=== PATIENT | female | born 1965 | race Caucasian/White ===

== ENCOUNTER 2017-07-24 16:24 | Inpatient (IN) | payer OTHER ==
[~2017-07-24] VITALS: Ht 177.8 cm; Wt 85.5 kg
[2017-07-24 16:29] VITALS: BP 131/86; PULSE 95; RESP 16; O2SAT 97
--- NOTE | 2017-07-24 16:53 | ED.REPORT ---
HPI-Abd Pain F 40 and Over Date of Service Jul 24, 2017 ED Provider: Sundar Trinidad DO Pt is a generally healthy 51 y/o female w/ a hx of nephrolithiasis presenting to the ED with her c/o RUQ abdominal pain onset 6 days ago. She c/o associated N/V/D, SOB, pleuritic abdominal pain. She saw a dark red blob in her emesis and is concerned that it may be blood. Pt denies fever, bloody stool, melena, dysuria, urinary frequency. She still has her gallbladder. The patient was seen for this yesterday at an [place] [facility] at which time labs and urine dip were performed. Labs from that visit remarkable for WBC of 16.6, HGB of 14.7 , platelets of 292, creatinine of 0.67, LFTs normal, total bilirubin of 0.7, and 2+ blood on urine dip. She was given a referral to GI for an appointment in 1 week at the earliest. She didn't feel any better and therefore came to the ED today. Her medications are only aspirin and vitamins. This pain is not similar to previous kidney stone related pain. Nursing Notes Stated Complaint: STOMACH PAIN, POSS BLOOD IN VOMIT Chief Complaint: Female Abdominal Pain Nursing Notes Reviewed: Yes Allergies: Coded Allergies: tree nut (Verified Allergy, Severe, Anaphylaxis, 07/24/17) shellfish derived (Verified Allergy, Mild, GI ISSUES, 07/24/17) TESTED SENSITIVITY TO SHELLFISH No Known Allergies (Unverified Allergy, Unknown, 07/24/17) General Time Seen by MD: 16:49 Chief Complaint Abdominal pain Hx Obtained From: Patient Arrived By: Walk-in Sudden in Onset?: No Onset Occurred: 6 days ago Symptom Duration: Since onset Progression since Onset: Constant Location: : Epigastric Quality: Painful Severity: Current: Moderate Severity: Maximum: Moderate Recent Healthcare: Recent doctor visit Past Medical History Past Medical History Hx kidney stones Past Surgical History Hysterectomy Smoking History Never Smoker Social History Alcohol Use: Denies alcohol use Drug Use: Denies drug use Other Social History: Ambulatory Status Independent Review of Systems Constitutional: Denies: Chills, Fever Respiratory: Reports: Shortness of breath, Denies: Non-productive cough GI: Reports: Abdominal pain, Diarrhea, Nausea, Vomiting, Denies: Bloody/tarry stool, Melena Female: Denies: Dysuria, Urinary frequency Complete sys rev & neg: except as marked. Physical Exam Vital Signs Vital Signs (First) Date Time Temp Pulse Resp B/P Pulse Ox O2 Delivery O2 Flow Rate FiO2 07/24/17 16:29 36.8 95 16 131/86 97 Room Air Initial VS: Reviewed, Vital signs normal Head / Eyes: Atraumatic, Normocephalic ENT: Mucous membranes moist, Conjunctiva normal Neck: Supple, Full range of motion Extremities: Vascular intact, Neuro intact, No swelling Skin: Warm, Dry, No cyanosis Neurologic: Alert, Oriented, Nonfocal Psychiatric: Mood/affect normal, Behavior normal, Normal thought content General/Constitutional: Awake, Alert, No acute distress, Cooperative, Not toxic appearing Respiratory / Chest: Breath sounds NL, Breath sounds = bilat, No respiratory distress, No rales, No rhonchi, No wheezing, No stridor Cardiovascular: Heart rate NL, Regular rhythm, Heart sounds NL, No murmurs Abdomen: Atraumatic, Soft, No distention, No palpable mass Tenderness/Guarding/Rebound: Positive: Guarding involuntary, Hardin's sign positive, Tender RUQ... (mod-severe), Tender epigastric (moderate) Back: Full range of motion, Painless range of motion Interpretation & Diagnostics Lab Results Interpretation Result Diagram: 07/24/17 1741 Test 07/24/17 17:10 07/24/17 17:41 Hold Urine Received (Received) White Blood Count 13.6th/mm3 (3.8-10.1) Red Blood Count 4.78mil/mm3 (3.90-5.20) Hemoglobin 14.2g/dL (12.0-15.6) Hematocrit 40.8% (35.0-46.0) Mean Corpuscular Volume 85.4fL (81-100) Mean Corpuscular Hemoglobin 29.7pg (27.0-35.0) Mean Corpuscular Hemoglobin Concent 34.8% (32.0-37.0) Red Cell Distribution Width 13.6% (12.3-15.4) Platelet Count 289bil/L (150-400) Neutrophils (%) (Auto) 74.9% (40-74) Lymphocytes (%) (Auto) 16.6% (14-46) Monocytes (%) (Auto) 6.6% (4-12) Eosinophils (%) (Auto) 1.5% (0-5) Basophils (%) (Auto) 0.3% (0-3) Re-Eval/Medical Decision Source of Hx: Old records Counseled Regarding: Diagnosis, Lab results Discharge & Departure Primary Impression: Epigastric pain Discharge Condition All VS Reviewed: Yes Condition: Stable Referrals: Neri Valencia MD (PCP) Care Transferred to: Dr. Enrique Aguilar Care Transferred at: 18:00 Scribe Attestation Portions of this note were transcribed by Dayne Kerns. I, Dr. Trinidad personally performed the history, physical exam and medical decision-making; I reviewed and confirmed the accuracy of the information in the transcribed note. copies to: Neri Valencia MD, Timothy S DO Jul 24, 2017 16:53 DAYNE KERNS Jul 24, 2017 17:00
[2017-07-24] MEDS ORDERED: 0.9% Sodium Chloride 1,000 ML IV ONE (17:14)
[2017-07-24 17:56] LABS: BASOPHILS % (AUTO) 0.3 % (0-3); EOSINOPHILS % (AUTO) 1.5 % (0-5); MONOCYTES % (AUTO) 6.6 % (4-12); Mean Corpuscular Hemoglobin 29.7 pg (27.0-35.0); Mean Corpuscular Volume 85.4 fL (81-100); NEUTROPHILS % (AUTO) 74.9 % (40-74); Platelet Count 289 bil/L (150-400)
[2017-07-24] MEDS: HYDROmorphone 0.5 mg/0.5 mL iSecure Syringe IVPUSH PRN (18:06)
[2017-07-24] MEDS: Ondansetron 2 mg/mL 2 mL Inj IVPUSH PRN ×2 (18:06→21:35)
[2017-07-24 18:14] LABS: Magnesium 2.2 mg/dL (1.6-2.6)
--- NOTE | 2017-07-24 18:17 | DRSVH ---
PROCEDURE: X-RAY CHEST ONE VIEW, PORTABLE ([id number]) INDICATIONS: dyspnea, vomiting TECHNIQUE: One view of the chest was acquired. COMPARISON: None. FINDINGS: Surgical changes and devices: None. Lungs and pleura: No pleural effusions or pneumothorax. Lungs are clear. Mediastinum: Mediastinal contours appear normal. Heart size is normal. Bones and chest wall: No suspicious bony lesions. Overlying soft tissues appear unremarkable. IMPRESSION: Acute and chronic disease or not identified an upright portable chest. Dictated by: Alban Villarreal M.D. on 07/24/2017 at 18:15 Approved by: Alban Villarreal M.D. on 07/24/2017 at 18:15
--- NOTE | 2017-07-24 19:33 | DRSVH ---
PROCEDURE: CT ABDOMEN AND PELVIS WITH CONTRAST ([id number]) INDICATIONS: epigastric RUQ pain, vomiting TECHNIQUE: After the administration of intravenous contrast, 5 mm thick sections acquired from the diaphragm to the symphysis. 5 mm coronal and sagittal reformats were acquired. For radiation dose reduction, the following was used: automated exposure control, adjustment of mA and/or kV according to patient siz e. COMPARISON: None. FINDINGS: Image quality: Excellent. ABDOMEN: Lung bases: Lung bases are clear. Heart size is normal. There is a small to moderate size hiatal h ernia Solid organs: Liver and spleen are normal in size and enhancement. Gallbladder is within normal bhat its. Biliary system is non dilated. Pancreas enhances normally. No adrenal nodules. Kidneys demon strate normal size and enhancement, without hydronephrosis. Peritoneum and bowel: Bowel loops demonstrate normal wall thickness and caliber. No free air. Ther e is a small amount of free fluid in the peritoneal cavity which would be considered abnormal in a pe rson of this age. There is a normal appendix. Nodes and vessels: No retroperitoneal or mesenteric adenopathy by size criteria. Aorta and inferior vena cava are normal in size. Miscellaneous: No ventral hernias. There is some stranding and slight increase in density of the fa t/omentum anteriorly in the abdomen. This is more central than right-sided which could represent a se gmental omental infarct that is beginning. No other abnormality is seen in the upper abdomen. PELVIS: Genitourinary: Bladder wall thickness is normal. Miscellaneous: No inguinal hernias or adenopathy. Bones: No suspicious bony lesions. No vertebral body compression fractures. IMPRESSION: 1. Small amount of free fluid in the peritoneal cavity, an abnormal finding in a patient of this age. 2. Stranding is seen in the mesentery or omentum of the anterior abdominal cavity. This could represe nt a mild segmental omental infarct. I don't see any source of inflammation from bowel or solid or ho llow organs. No changes to indicate diverticulitis or pancreatitis are identified 3. Probable atrophic uterus versus hysterectomy. No ovarian enlargement is seen. Dictated by: Alban Villarreal M.D. on 07/24/2017 at 19:22 Approved by: Alban Villarreal M.D. on 07/24/2017 at 19:32
[2017-07-24] MEDS ORDERED: Pantoprazole 4 mg/mL 10 mL Inj IVPUSH ONE (20:30)
--- NOTE | 2017-07-24 21:23 | PCM.HPMED ---
Subjective Date of Service Jul 24, 2017 Primary Provider: Admitting Physician: Primary Care Physician: Other,Physician Attending Physician: Chief Complaint: nausea History of Present Illness: 51-year-old female from home visits to the ED with gastrointestinal symptoms. She carries a medical history significant only for nephrolithiasis. Patient states knife like lower thoracic back pain started around 6 days ago, and migrate anteriorly to the epigastric and right upper quadrant pain. Pain pain has a constant and increasing quality unrelated to food intake. Patient reports significant shortness of breath with inspiration associated with pain started around 2-3 days ago. And yesterday patient started nausea and vomiting with hematemesis. She tolerated very little by mouth intake, was able to tolerate yogurt and on season mashed potatoes. At then, patient visited [facility], which gave her omeprazole and discharge her. Patient had a mild 99.3 temperature and white count on that visit. Due to the consistent nausea vomiting plus severity of abdominal pain, patient elected to decide further medical care at [facility] ED. Patient denies any lightheadedness dizziness , palpitation, chest pain, no coughing, no chills or night sweats, no tingling numbness weakness in extremities, no swellings in the legs. Due to patient's abdominal pain, CT abdomen and pelvis ordered and showed small amount of free fluid in the peritoneal cavity with addition of mesentery stranding. LFT, lipase were completely benign. Concerning however, elevated white count at 13.6 with 74.9% neutrophil. Additionally vital shows tachycardic at 95 bmp. Normal temperature, respiratory rate blood pressure. CMP fairly unremarkable except for slightly low potassium 3.4 with magnesium 2.2. A lactic acid was ordered on and off since this may be ischemic process. Patient is admitted with abdominal pain for further evaluation. Review of Systems: A comprehensive review of systems was conducted with the patient and found to be negative except as above in the History of Present Illness. 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 PERRLA, Anicteric sclerae, moist conjunctivae. Neck: No JVD, No bruits. No lymphadenopathy or thyromegaly. Cardiovascular: Regular rate and rhythm with no murmurs, rubs, or gallops appreciated Pulmonary: b/l air sound with no crackles, wheezes, or rhonchi. no use of accessory muscles. Abdomen: Positive bowel sounds, significant tenderness epigastric and right upper quadrant, rebound tenderness present, negative for costophrenic angle tenderness, negative for Hardin sign Extremities: No clubbing or cyanosis, no lymphedema, no b/l lower leg edema Skin: Normal temperature, turgor, and texture; no rash. No visualized skin ulcer. Neurological: CN II-VII grossly intact, moving equally on all 4 extremities Psychiatric: Normal mood and affect. AOx3 Lab and Diagnostics Result Diagram: 07/24/17 1741 07/24/17 1741 X-Rays, CTs and MRIs PROCEDURE: CT ABDOMEN AND PELVIS WITH CONTRAST ([id number]) INDICATIONS: epigastric RUQ pain, vomiting IMPRESSION: 1. Small amount of free fluid in the peritoneal cavity, an abnormal finding in a patient of this age. 2. Stranding is seen in the mesentery or omentum of the anterior abdominal cavity. This could represent a mild segmental omental infarct. I don't see any source of inflammation from bowel or solid or hollow organs. No changes to indicate diverticulitis or pancreatitis are identified 3. Probable atrophic uterus versus hysterectomy. No ovarian enlargement is seen. Dictated by: Alban Villarreal M.D. on 07/24/2017 at 19:22 PROCEDURE: X-RAY CHEST ONE VIEW, PORTABLE ([id number]) INDICATIONS: dyspnea, vomiting IMPRESSION: Acute and chronic disease or not identified an upright portable chest. Dictated by: Alban Villarreal M.D. on 07/24/2017 at 18:15 Assessment & Plan Patient is a 51-year-old female with medical history significant for nephrolithiasis presented with intractable epigastric pain, hematemesis, admitted for likely severe gastric ulcer. Upper abdominal pain -LFTs, lipase, lactic acid all unremarkable -CT showing mesentery or omental stranding in the anterior abdominal cavity -Likely peptic ulcer disease, gastric ulcer, possible omental ischemia from surgical standpoint -Surgeon Dr. Michelet De Dios consulted -Consult GI Dr. Haley for possible EGD -NPO, pain control, fluids,and abx ordered Leukocytosis -likely stressed induced, possible intraabdominal process -blood culture pending -Broad coverage Zosyn Hypokalemia -likely 2nd to vomiting -replenished per protocol Hyperglycemia -mildly elevated glucose -A1c pending DVT prophylaxis: SCD for now, heparin contraindicated secondary to possible upper GI bleed CODE STATUS full code Pain Evaluation: Adequate Pain Control GI Prophylaxis: Proton Pump Inhibitor VTE Prophylaxis: SCDs Resuscitation Status: CPR: Attempt Resuscitation Attending Statement The patient was seen and examined together with house staff on 07/24/2017 and I agree with the history, exam and plan as outlined in the note above. Abram French DO Jul 24, 2017 21:23 Marilu Cox DO Jul 25, 2017 02:29
[2017-07-24] MEDS ORDERED: TAMS0.4C29 PO (21:25)
[2017-07-24] MEDS ORDERED: OMEP20CA11 PO (21:25)
[2017-07-24] MEDS ORDERED: Alum-Mag Hydrox-Simeth 30 mL Suspension PO PRN (21:30)
[2017-07-24] MEDS ORDERED: KCl 40 mEq/D5W 500 mL 40 MEQ in IV Premix 1 EACH IV ONE (21:30)
[2017-07-24] MEDS ORDERED: Polyethylene Glycol (PEG) 17 Gm Powder PO PRN (21:30)
[2017-07-24 21:41] LABS: APPEARANCE,URINE HAZY (CLEAR,HAZY); COLOR,URINE YELLOW (YELLOW); OCCULT BLOOD,URINE SMALL (NEGATIVE); PH,URINE 6.5 (5.0-8.0); UROBILINOGEN,URINE NORMAL (NORMAL)
[2017-07-24] MEDS ORDERED: Pantoprazole Inj 80 MG in 0.9% Sodium Chloride 80 ML IV SCH (22:00)
[2017-07-24 22:20] VITALS: BP 139/80; PULSE 73; RESP 18; O2SAT 95
[2017-07-24] MEDS: 0.9% Sodium Chloride 1,000 ML IV SCH (22:43)
[2017-07-24] MEDS: Piperacillin-Tazo 3.375 Gm Inj 3.375 GM in Dextrose 5% Minibag Plus 50 ML IV SCH (22:44)
[2017-07-24 23:40] VITALS: PULSE 81
--- NOTE | 2017-07-24 23:40 | NUR ---
Admit Pt arrived to [facility] floor from ED at 2220. Came in with c/o "severe upper abdominal pain" and "blood in my vomit". Pt remains NPO. VSS, denies medications for pain or nausea at this time. No emesis, but burping. States "the pain has decreased since i've been at the hospital." Per pt, last BM was this morning, 07/24/17. Bowel tones very hypoactive to RLQ, RUQ, LUQ, and absent to LLQ. Pain still has severe pain to epigastric area with palpation. GI consult for tomorrow.
[2017-07-25] VITALS (10 sets, daily range): BP systolic 121–157; BP diastolic 72–105; PULSE 68–87; RESP 14–20; O2SAT 95–99
--- NOTE | 2017-07-25 00:13 | CONS ---
[address] [address] CONSULTATION REPORT PATIENT: FROILAN CHRISTIANSON : 1965 MR#: [id number] ADMIT: 07/24/2017 JOB ID: [id number] DATE OF SERVICE: 07/24/2017 CHIEF COMPLAINT/IDENTIFICATION: Dr. Trinidad and the Medicine Service asked me to consult on this 51-year-old female with abdominal pain and hematemesis. HISTORY OF PRESENT ILLNESS: She notes that she began with upper abdominal pain six days ago with some associated nausea, vomiting, shortness of breath and increased abdominal pain with deep breaths. This has persisted, did not get particularly better nor worse and again by her report was seen yesterday at the [facility] with labs including a white blood cell count of 16.6, and normal liver function tests. She was sent home with an outpatient referral to GI and has sought a second opinion in our emergency department today. Regarding possible hematemesis, she tells me that at one point yesterday she ate lunch, got nauseated and vomited. A few minutes later she vomited up some dark maroon-colored mucoid material. She has had no melena, blood in her stool, a large amount of blood in her emesis nor for that matter not much emesis. PAST MEDICAL HISTORY: 1. Nephrolithiasis in the distant past. 2. Status post hysterectomy. MEDICATIONS: None. ALLERGIES: No known drug allergies. 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 Negative daily alcohol use. FAMILY HISTORY: Noncontributory. REVIEW OF SYSTEMS: Per emergency department and history and physical, no additional information obtained from my own review of systems. PHYSICAL EXAMINATION: A pleasant woman in not much distress. BMI is 27. Vitals were recorded as a pulse of 73, blood pressure 139/80 and a temperature of 36.7. To my examination, her pulse is below 80. Her sclerae are clear. Neck is supple. Heart and lungs are not examined. She does have exquisite mid epigastric tenderness to deep palpation. No lateral abdominal tenderness and no diffuse abdominal tenderness. LABORATORY DATA: Her white count today is 13.6. Her hematocrit is 40.8. Platelet count is 282. Chemistries are normal except for mildly low potassium at 3.4. Mildly elevated glucose of 116. Her lactic acid is 0.6. Lipase is 19. IMAGING: She has had a chest x-ray and a CT scan. I reviewed the report of the chest x-ray and both the report and the films of the CT of the abdomen. I concur with Dr. 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 IMPRESSION/PLAN: Although I think this the patient's primary problem is her abdominal pain, I do not think she really has hematemesis or any clear history suggestive of upper gastrointestinal bleed. 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 I have expressed this opinion to her. I have said that it would be reasonable that if her pain was controlled with oral pain medications that she would simply be discharged with the expectation that this would slowly resolve itself. However, if there remains some question of the diagnosis or if her pain is excessive, I would be willing to move ahead with a diagnostic laparoscopy on and possibly even wedge out the infarcted omentum though I believe this would not really address her symptoms much more than simply letting the infarct involute. General Surgery will follow up with the patient tomorrow and I will be available for diagnostic laparoscopy on .
[2017-07-25] MEDS: Ondansetron 2 mg/mL 2 mL Inj IVPUSH PRN ×4 (02:31→23:32)
[2017-07-25] MEDS: HYDROmorphone 0.5 mg/0.5 mL iSecure Syringe IVPUSH PRN (03:51)
[2017-07-25] MEDS: Piperacillin-Tazo 3.375 Gm Inj 3.375 GM in Dextrose 5% Minibag Plus 50 ML IV SCH ×3 (05:57→23:23)
[2017-07-25 06:16] LABS: BASOPHILS % (AUTO) 0.2 % (0-3); EOSINOPHILS % (AUTO) 0.9 % (0-5); MONOCYTES % (AUTO) 5.1 % (4-12); Mean Corpuscular Volume 87.3 fL (81-100); NEUTROPHILS % (AUTO) 76.1 % (40-74); Platelet Count 256 bil/L (150-400)
--- NOTE | 2017-07-25 11:29 | NUR ---
Social Work- Screening Data: EMR reviewed. Pt is a 51 year old admitted under [facility] for epigastric pain, hematemosis per H&P. Pt's insurance is [employer]. Pt's PCP is Olive Moreno at the [facility]. Pt's readmit risk score is not listed at this time. Pt discussed in multidisciplinary rounds, asked UR to review pt for potential inpt status. [employer] contacted UR RN to review pt. SW met with pt at bedside regarding discharge planning, SW role explained. Pt alert and oriented x3. Pt resides in [place] with her spouse where she is independent with ADLs and self-care. 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 Pt has no DPOA on file, declined information related to DPOA. SW placed phone number and plan on whiteboard. Pt is likely to d/c home with her to transport via POV. No discharge needs anticipated, SW will continue to follow. Assessment: Pt who is independent with ADLs and self-care Plan: Pt is likely to d/c home with her to transport via POV. No discharge needs anticipated, SW will continue to follow. Marilu Rosales, [employer]
--- NOTE | 2017-07-25 12:41 | PCM.PNSURG ---
Subjective Date of Service: Jul 25, 2017 Date of Service: Jul 25, 2017 Visit Information: Reason for Visit Epigastric Pain, Hematemosis Surgery/Surgery Date Post-Op Day # Date of Admission: Jul 24, 2017 at 21:33 Hospital Day # 2 Subjective: Patient interviewed at bedside. Notes persistent nausea with bouts of emesis only mildly alleviated with zofran and iv protonix. Discloses long hx of nausea , emesis and early satiety with similar symptoms although less intense for several months. Notes past hx of increased nausea and vomiting which was improved after diagnosis of tree nut allergy but have still been present to a lesser degree. Not tolerating oral feedings. Denies fevers or chills. Continues to endorse presence of epigastric pain. Postop General: No Shortness of Breath Gastrointestinal: Complains of Nausea, Vomitting, Not Tolerating Oral Feedings Postop Activity: Ambulating Independently Objective Objective Pleasant female in mild distress and discomfort. Sitting upright in bed. Vital Sign- Last 8 Hours Date Time Temp Pulse Resp B/P Pulse Ox O2 Delivery O2 Flow Rate FiO2 07/25/17 11:51 36.2 81 16 122/82 97 Room Air 07/25/17 10:53 68 07/25/17 06:50 36.9 76 16 127/77 95 Room Air Intake and Output- Last 8 Hour 07/25/17 Cumulative From/Thru 07:00 07/24/17 16:29 - 07/25/17 05:21 Intake Total 388 ml 1388 ml Balance 388 ml 1388 ml IV Total 388 ml 1388 ml General: Alert, Oriented X3 Neck: Supple Lungs: Clear to Auscultation Heart: Exam Unremarkable Abdomen: Other (exquisitly tender epigastrum with significant guarding. Hypoactive bowel sounds.) Result Diagram: 07/25/17 0535 07/25/17 0535 Assessment & Plan Impression epigastric abdominal pain, unsure etiology. Possibly omental infarct however given long standing issues with nausea and vomiting related to eating, its possible that this could be related to esophageal or gastric disease. Evaluation of GI cause of symptoms preferable at this stage prior to OR for diagnostic lap. Problems: Plan Consider GI eval with EGD prior to further surgical intervention. Keep NPO. Possible diagnostic laparoscopy in am if EGD inconclusive. Continue current medications. VTE Prophylaxis: SCDs Resuscitation Status: CPR: Attempt Resuscitation Michael Tobias PA-C Jul 25, 2017 12:41
--- NOTE | 2017-07-25 14:09 | PCM.HPANE ---
Patient Data Surgeon Admitting Provider:Marilu oCx DO Attending Provider:Terrance Morrison MD Primary Care Physician:Other,Physician Other Provider:Jo Granger Reason for Visit Epigastric Pain, Hematemosis EPIGASTRIC PAIN, HEMATEMOSIS Ht/WT & BMI Height (Feet): 5 Height (Inches): 10.00 Weight (Kilograms): 85.450 Body Mass Index 26.00 Allergies Coded Allergies: tree nut (Verified Allergy, Severe, Anaphylaxis, 07/24/17) shellfish derived (Verified Allergy, Mild, GI ISSUES, 07/24/17) TESTED SENSITIVITY TO SHELLFISH No Known Allergies (Unverified Allergy, Unknown, 07/24/17) Past Anesthesia History Anesthesia History: Denies:: Abnormal Airway, Anesthesia Reactions, Difficult Intubation, Fam Anesthesia Reaction, Fam Malignant Hypertherm, Malignant Hyperthermia Diabetes History Hx Diabetes?: No MRSA MRSA: No Medications Reported Medications Omeprazole 20 Mg Capsule.dr20 Mg PO bid x 14 days #28 07/24/17 Tamsulosin ER 0.4 Mg Cap.er.24h0.4 Mg PO HS x 14 days #14 07/24/17 History History of ENT Problems?: No HEENT History: Positive for:: Dysphagia (MOSTLY SOLIDS) Denies:: Abnormal Airway Cataracts Difficult Intubation Glaucoma Hearing Problem Sinus Problem Denture Type: None Teeth Condition: Within Normal Limits Hx of Heart Problems?: No Cardiovascular History: Denies:: AICD Abdominal Aortic Aneurism Atrial Fibrillation Cardiac Surgery Chest Pain Congestive Heart Failure Coronary Artery Disease Edema Heart Murmur Hypertension Irregular Heartbeat Pacemaker Peripheral Vascular Rheumatic Fever Thrombophlebitis Valvular Heart Disease Hx of Respiratory Problem?: Yes Respiratory History: Positive for:: Pneumonia (in past 10 years per pt) Denies:: Asthma COPD Chest Surgery Emphysema Hemoptysis Tuberculosis Hx Neurologic Problems?: No Neurological History: Positive for:: Dizziness (intermittent) Headaches Denies:: Alzheimer's Disease CVA Dementia Parkinson's Disease Seizures Hx of GI Problems?: Yes Hx of Problems?: No Genitourinary History: Positive for:: Kidney Stones ("a few years ago") Denies:: HX of Hemodialysis Urinary Tract Infection HX of Peritoneal Dialysis: No Female Hx: Denies:: Currently (HYSTO) Endometriosis Pelvic Inflammatory Problems with Breasts? Hx Musculoskeletal Problems?: No Musculoskeletal History: Denies:: Back Injury Fibromyalgia Joint Replacement Musculoskeletal Trauma Hx of Psycho/Social Problems?: No Psycho Social History: Denies:: Anxiety Bipolar Disorder Hx Depression Suicide Attempt Hx Surgeries?: Yes (hysterectomy 2003) Hx Any Other Health Problems?: No Other History: Positive for:: Hospitalization (hysterectomy 2003) Denies:: Cancer Thyroid Disease History Blood Transfusions: Positive for:: Accept Blood Products? 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 Hx Alcohol Use: NoHx Substance Use: No Smoking Status: Never Smoker Have You Smoked inLast 12 mo: No Stop/Bang Treated for Sleep Apnea?: No Do You Have a CPAP Machine?: No S-Snoring: Do You Snore Loudly: No T-Tired: feel tired, fatigued: No O-Obsered: Observed not breath: No P-Blood Pressure: treated: No B- Body Mass Index > 35 kg/m2: No A- Age over 50: No N- Neck Large Circumference: No G- Gender Male: No TATE Total Score: 0 Risk Assessment Category Category 1A: Patient has history of documented sleep apnea, and HAS NOT received any narcotic, sedative or anesthesia administration during this stay. Category 1B: Patient has history of documented sleep apnea, and HAS received any narcotic , sedative or anesthesia administration during this stay Category 2: Patient has SUSPECTED Obstructive Sleep Apnea, and HAS received any narcotic , sedative or anesthesia administration during this stay. Category 3: Patient has SUSPECTED Obstructive Sleep Apnea and HAS NOT received narcotic, sedative or anesthesia administration during this stay. Category 4: Outpatient in Procedural Areas with known sleep apnea or who screen positive for High Risk via the STOP/BANG questionnaire. Exam Exam Vital Signs Vital Signs Date Time Temp Pulse Resp B/P Pulse Ox O2 Delivery O2 Flow Rate FiO2 07/25/17 13:47 36.8 82 14 133/86 98 Room Air 07/25/17 11:51 36.2 81 16 122/82 97 Room Air 07/25/17 10:53 68 07/25/17 06:50 36.9 76 16 127/77 95 Room Air General Appearance: Alert, Oriented X3, Cooperative, No Acute Distress HEENT/AIRWAY: MP 2 Lungs: Clear to Auscultation Heart: Exam Unremarkable Meds/Labs/Diagnostics Admission Meds Current Medications Sodium Chloride (Normal Saline) 1,000 ml @ 0 mls/hr Q0M ONCE IV Last administered on 07/24/17 17:50; Start 07/24/17 at 17:14; Stop 07/24/17 at 17:16 ; Status DC Pantoprazole 40 mg 40 mg ONCE ONCE IVPUSH Last administered on 07/24/17 21:35 ; Start 07/24/17 at 20:30; Stop 07/24/17 at 20:31; Status DC Potassium Chloride In D5W 40 meq/Premix 500 ml @ 125 mls/hr STAT ONCE IV Last administered on 07/25/17 03:43; Start 07/24/17 at 21:30; Stop 07/25/17 at 01:29; Status DC Pantoprazole 80 mg/Sodium Chloride 100 ml @ 10 mls/hr Q10H IV Last administered on 07/25/17 03:43; Start 07/24/17 at 22:00; Stop 07/25/17 at 08:13 ; Status DC Piperacillin Sod/ Tazobactam Sod 3.375 gm/Dextrose/ Water 50 ml @ 12.5 mls/hr Q8H IV Last administered on 07/25/17 05:57; Start 07/24/17 at 22:00 Sodium Chloride (Normal Saline) 1,000 ml @ 100 mls/hr Q10H IV Last administered on 07/24/17 22:43; Start 07/24/17 at 22:10 Labs Test 07/24/17 17:10 07/24/17 17:41 07/24/17 21:04 07/24/17 23:23 Urine Color Yellow (YELLOW) Urine Appearance Hazy (CLEAR,HAZY) Urine pH 6.5 (5.0-8.0) Urine Specific Elmo 1.010 (1.003-1.035) Urine Protein Negativemg/dL (NEG,TRACE) Urine Glucose (UA) Negativemg/dL (NEGATIVE) Urine Ketones Negativemg/dL (NEGATIVE) Urine Occult Blood Small (NEGATIVE) Urine Nitrite Negative (NEGATIVE) Urine Bilirubin Negative (NEGATIVE) Urine Urobilinogen Normalmg/dL (NORMAL) Urine Leukocyte Esterase Negative (NEGATIVE) Urine RBC 0-2/hpf (0-2) Urine WBC 0-5/hpf (0-5) Urine Epithelial Cells Moderate/hpf (NONE-MOD) Urine Crystals Amorphous urates (NONE Urine Bacteria Few/hpf (NONE-FEW) Urine Hyaline Casts None/lpf (NONE) Urine Granular Casts None seen (NONE SEEN) Urine Waxy Casts None seen (NONE SEEN) Urine Red Blood Cell Casts None seen (NONE SEEN) Urine White Blood Cell Casts None seen (NONE SEEN) Urine Mucus None seen (None Seen) Urine Trichomonas None seen (NONE SEEN) Urine Yeast None (NONE SEEN) Urinalysis Comment None Urine Culture Reflexed Not indicated Hold Urine Received (Received) Magnesium Level 2.2mg/dL (1.6-2.6) Total Bilirubin 0.6mg/dL (0.0-1.2) Aspartate Amino Transf (AST/SGOT) 15U/L (0-50) Alanine Aminotransferase (ALT/SGPT) 18U/L (0-32) Alkaline Phosphatase 63U/L (25-150) Total Protein 7.0g/dL (6.4-8.4) Albumin 3.6g/dL (3.4-5.0) Lipase 19U/L (13-60) Lactic Acid Level 0.6mmol/L (0.4-2.0) Test 07/25/17 05:35 White Blood Count 11.2th/mm3 (3.8-10.1) Red Blood Count 4.40mil/mm3 (3.90-5.20) Hemoglobin 13.2g/dL (12.0-15.6) Hematocrit 38.4% (35.0-46.0) Mean Corpuscular Volume 87.3fL (81-100) Mean Corpuscular Hemoglobin 30.0pg (27.0-35.0) Mean Corpuscular Hemoglobin Concent 34.4% (32.0-37.0) Red Cell Distribution Width 13.7% (12.3-15.4) Platelet Count 256bil/L (150-400) Neutrophils (%) (Auto) 76.1% (40-74) Lymphocytes (%) (Auto) 17.5% (14-46) Monocytes (%) (Auto) 5.1% (4-12) Eosinophils (%) (Auto) 0.9% (0-5) Basophils (%) (Auto) 0.2% (0-3) Sodium Level 138mEq/L (134-144) Potassium Level 4.2mEq/L (3.5-5.2) Chloride Level 105mEq/L (97-108) Carbon Dioxide Level 20mmol/L (18-29) Blood Urea Nitrogen 6mg/dL (6-24) Creatinine 0.58mg/dL (0.57-1.00) Estimat Glomerular Filtration Rate 158mL/min (>59) Glucose Level 158mg/dL (60-99) Calcium Level 8.4mg/dL (8.5-10.1) Plan Impression Patient chart reviewed, patient interviewed and anesthestic plan with risks, benefits, and alternatives discussed, and informed consent obtained. ASA Physical Status: ASA2 Mod Systemic Disease Anesthetic Plan: MAC Bene/Risks/Altern/Consents: Yes HP Complete Prior to Induction: Yes Domenico French MD Jul 25, 2017 14:09
--- NOTE | 2017-07-25 14:14 | PCM.CHPMED ---
Subjective Date of Service: Jul 25, 2017 Primary Physician: Admitting Physician: Marilu Cox DO Primary Care Physician: Other,Physician Attending Physician: Terrance Morrison MD Chief Complaint: Chief Complaint: Abdominal pain History of Present Illness: GASTROENTEROLOGY CONSULTATION: Attending Physician: Harshil Haley MD Resident Physician: Nanette Denis DO Carmela Romero is a 51-year-old woman with a history of nephrolithiasis who presented to the ED with a six day history of abdominal pain, nausea, and one episode of hematemesis. Associated symptoms include nausea, vomiting, diarrhea, early satiety, and shortness of breath. She reports a long history of nausea and states that she has felt like she had a lump in her throat for the past month or so. She was initially evaluated at the [facility] at which time she was noted to have a leukocytosis and mildly elevated temperature as well as hematuria on urinalysis. At that time she was advised to followup with a GI doctor in the outpatient setting. However, because her symptoms did not improve and her abdominal pain increased she decided to visit the ED. She denies fever, chills, bloody or dark tarry stool, dysuria, urinary frequency, diarrhea or constipation. Review of Systems: A comprehensive review of systems was conducted with the patient and found to be negative except as above in the History of Present Illness. PMH Past Medical History Left nephrolithiasis Adenomyosis Bladder prolapse . 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 Hx Alcohol Use: NoHx Substance Use: No Smoking Status: Never Smoker Living Arrangement: with Family Exam Vital Signs Vital Sign - Last Date Time Temp Pulse Resp B/P Pulse Ox O2 Delivery O2 Flow Rate FiO2 07/25/17 13:47 36.8 82 14 133/86 98 Room Air Intake and Output 07/24/17 07/24/17 07/25/17 Cumulative From/Thru 15:00 23:00 07:00 07/24/17 16:29 - 07/25/17 05:21 Intake Total 1000 ml 388 ml 1388 ml Balance 1000 ml 388 ml 1388 ml IV Total 1000 ml 388 ml 1388 ml General: Alert, Oriented X3 Head: Normal Eyes: PERRLA, Scleral Anicteric Chest & Lungs: Clear to auscultation & percussion Cardiovascular: Regular Rate/Rhythm, No Murmurs/Rubs/Gallops Abdomen: Tender, Non-distended, No masses, Normoactive bowel tones Extremities: No Edema Neurological: Grossly Neurologically Intact, Normal Speech Lab and Diagnostics Result Diagram: 07/25/1753407/25/17534 Assessment & Plan Assessment 51-year-old previously healthy woman with a history of nephrolithiasis who presented to the ED with a 6 day history of abdominal pain, nausea, and vomiting. GI consulted for endoscopic evaluation of abdominal pain and one episode of hematemesis. Acute on chronic abdominal pain associated with one episode of hematemesis and a month long history of difficulty swallowing. -Patient presented with severe epigastric pain and CT scan concerning for omental infarct. 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 Will consider laparoscopy on (07/26) and possibly even wedge out the infarcted omentum if symptoms worsen. -LFTs, lipase, lactic acid all unremarkable -Due to the patient's hx of a globus sensation, and possible dysphagia it is possible she may have underlying peptic ulcer disease, esophagitis, and/or esophageal stricture. Thus it is reasonable to pursue an EGD at this time. -Recommend outpatient followup to discuss routine screening colonoscopy -EGD performed this afternoon was grossly normal with only very mild esophagitis. No source for patient's abdominal pain or dysphagia identified. -Possible laparoscopy tomorrow and diet, per Surgery Additional problems managed by primary medicine team: - Mild Leukocytosis - Hypokalemia - Hyperglycemia . Problems: Pain Evaluation: Adequate Pain Control GI Prophylaxis: Proton Pump Inhibitor VTE Prophylaxis: SCDs VTE Mechanical Devices: Intermittant Pneumatic CD Resuscitation Status: CPR: Attempt Resuscitation Attending Statement Patient seen and examined. Agree with assessment and plan as described by Dr Denis. Dysphagia x 1 month. 4 days ab pain. Unusual findings at CT. 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 However, in light of the UGI sx's over the last month, the surgical service have very appropriately requested diagnostic upper endoscopy before considering any possible surgical intervention. HilarioomariNanette Miller DO Jul 25, 2017 14:14 Harshil Haley MD Jul 25, 2017 22:12 Nanette Denis DO Jul 25, 2017 14:14 epigastric abdominal pain, unsure etiology. Possibly omental infarct however given long standing issues with nausea and vomiting related to eating, its possible that this could be related to esophageal or gastric disease. Evaluation of GI cause of symptoms preferable at this stage prior to OR for diagnostic lap. Consider GI eval with EGD prior to further surgical intervention. Keep NPO. Possible diagnostic laparoscopy in am if EGD inconclusive. Continue current medications. Problems: Pain Evaluation: Adequate Pain Control GI Prophylaxis: Proton Pump Inhibitor VTE Prophylaxis: SCDs VTE Mechanical Devices: Intermittant Pneumatic CD Resuscitation Status: CPR: Attempt Resuscitation AdeelJessNanette M DO Jul 25, 2017 14:14 present to a lesser degree. Not tolerating oral feedings. Denies fevers or chills. Continues to endorse presence of epigastric pain. epigastric abdominal pain, unsure etiology. Possibly omental infarct however given long standing issues with nausea and vomiting related to eating, its possible that this could be related to esophageal or gastric disease. Evaluation of GI cause of symptoms preferable at this stage prior to OR for diagnostic lap. Consider GI eval with EGD prior to further surgical intervention. Keep NPO. Possible diagnostic laparoscopy in am if EGD inconclusive. Continue current medications. Problems: Pain Evaluation: Adequate Pain Control GI Prophylaxis: Proton Pump Inhibitor VTE Prophylaxis: SCDs VTE Mechanical Devices: Intermittant Pneumatic CD Resuscitation Status: CPR: Attempt Resuscitation Nanette Denis Paul CASH Jul 25, 2017 14:14
--- NOTE | 2017-07-25 14:24 | NUR ---
Pain/N/V Emesis Pt c/o of pain only w/palpation to upper abdomen and only in one spot, states "only hurts when it's this certain area pressed." States also "has had vomitting issues for some time, and all I have to do is have my head lower than my heart and it triggers me to vomit." IV Zofran given as ordered for N/V. Significant amount of emesis before EGD today, endo made aware. Care ongoing.
[2017-07-25] MEDS ORDERED: Lactated Ringer's 1,000 ML IV ONE (14:30)
--- NOTE | 2017-07-25 14:49 | PCM.ANEP1 ---
Post Anesthesia PACU Phase 1 Assessment Vital Signs Vital Signs Date Time Temp Pulse Resp B/P Pulse Ox O2 Delivery O2 Flow Rate FiO2 07/25/17 14:39 87 139/80 98 Room Air 07/25/17 13:47 36.8 82 14 133/86 98 Room Air 07/25/17 11:51 36.2 81 16 122/82 97 Room Air 07/25/17 10:53 68 07/25/17 06:50 36.9 76 16 127/77 95 Room Air Anesthetic Administered: GA Level of Alertness: Awake, talking Pain: No Pain Scale Score: 7 Nausea or Vomiting: No CV Function & Hydration Stable: Yes Airway Device: Oxygen Delivery: Room Air Lungs: Clear to Auscultation Dermatome Level: Full Sensation PACU Phase 2 Assessment Complications: No Patient Instructions Provided: N/A Domenico French MD Jul 25, 2017 14:49
--- NOTE | 2017-07-25 14:51 | ENDO ---
[address] [address] ENDOSCOPY PROCEDURE PATIENT: FROILAN CHRISTIANSON : 1965 MR#: [id number] ADMIT: 07/24/2017 JOB ID: [id number] PROCEDURE: Esophagogastroduodenoscopy with biopsy. INDICATIONS: A 51-year-old female admitted for subacute symptoms of epigastric pain. CT was concerning for omental infarct. She however has had some symptoms of dysphagia over the last month or so. No weight loss. No significant change in bowel habit. She did have a small amount of blood seen in her emesis x1 out of the three separate times she has vomited. EGD is therefore pursued at the request of her primary surgical service. EQUIPMENT: GIF H 180 J. SEDATION: Monitored anesthesia as provided by Dr. Domenico French. COMPLICATIONS: None. PROCEDURE INFORMATION: After the risks and benefits were explained, written and verbal informed consent was obtained. The patient was brought into the endoscopy suite and placed in the left lateral decubitus position. Sedation was achieved as above. The scope was introduced into the mouth through the bite block and advanced to the second portion of the duodenum. The scope was slowly withdrawn to carefully examine the mucosa for any defects or lesions. Retroflexed views were accomplished in the stomach, the stomach was decompressed, and the scope removed from the patient, who tolerated the procedure well. FINDINGS: 1. Duodenum: This appeared visually normal from the bulb through to the second portion. 2. Stomach: No outlet obstruction. No ulcers. No mass lesions. Mild diffuse gastropathy seen throughout and random biopsy was taken therefore for exclusion of Helicobacter or any other underlying histopathology. Otherwise, retroflexed views of the LES were within normal limits. 3. Esophagus: The squamocolumnar junction correlated with the top of the gastric folds. The GEJ was at about 42 cm from the incisors. The patient had evidence of LA grade A erosive esophagitis. No other significant pathology in the esophagus throughout. Subtle sliding hiatal hernia noted. ENDOSCOPIC DIAGNOSES: 1. LA grade A erosive esophagitis. 2. Subtle sliding hiatal hernia. 3. Mild gastropathy. RECOMMENDATIONS: 1. Await histopathology. 2. If Helicobacter is found, it will need to be eradicated with standard triple therapy. 3. From a GI standpoint. the patient can have a liquid diet and then be advanced at the discretion of her consulting surgical service. 4. I did not identify the explanation for her abdominal pain. I suspect this is indeed probably related to the omental infarct suggested at CT and would defer further management to the surgical service. Gastroenterology service will sign off at this time. Please feel free to contact me at [phone] for any questions or clinical changes.
[2017-07-25] MEDS: 0.9% Sodium Chloride 1,000 ML IV SCH (15:41)
--- NOTE | 2017-07-25 16:58 | PCM.PNMED ---
Subjective Date of Service Jul 25, 2017 Subjective + nausea w/ emesis this AM. Exam Vital Signs Vital Sign - Last Date Time Temp Pulse Resp B/P Pulse Ox O2 Delivery O2 Flow Rate FiO2 07/25/17 15:13 36.7 72 18 157/105 97 Room Air Intake and Output 07/24/17 07/24/17 07/25/17 Cumulative From/Thru 15:00 23:00 07:00 07/24/17 16:29 - 07/25/17 05:21 Intake Total 1000 ml 388 ml 1388 ml Balance 1000 ml 388 ml 1388 ml IV Total 1000 ml 388 ml 1388 ml Exam General: No acute distress, appropriately interactive HEENT: Normocephalic, atraumatic. PERRLA, Anicteric sclerae, moist conjunctivae. Neck: No JVD, No bruits. No lymphadenopathy or thyromegaly. Cardiovascular: Regular rate and rhythm with no murmurs, rubs, or gallops appreciated Pulmonary: b/l air sound with no crackles, wheezes, or rhonchi. no use of accessory muscles. Abdomen: Positive bowel sounds, significant tenderness epigastric and right upper quadrant, rebound tenderness present, negative for costophrenic angle tenderness, negative for Hardin sign Extremities: No clubbing or cyanosis, no lymphedema, no b/l lower leg edema Skin: Normal temperature, turgor, and texture; no rash. No visualized skin ulcer. Neurological: CN II-VII grossly intact, moving equally on all 4 extremities Psychiatric: Normal mood and affect. AOx3 IVs and Medications Medications Reviewed: Medications were reviewed in detail Lab and Diagnostics Result Diagram: 07/25/17 0535 07/25/17 0535 Microbiology Microbiology 07/24/17 Blood Culture, Received Pending X-Rays, CTs and MRIs PROCEDURE: CT ABDOMEN AND PELVIS WITH CONTRAST ([id number]) INDICATIONS: epigastric RUQ pain, vomiting IMPRESSION: 1. Small amount of free fluid in the peritoneal cavity, an abnormal finding in a patient of this age. 2. Stranding is seen in the mesentery or omentum of the anterior abdominal cavity. This could represent a mild segmental omental infarct. I don't see any source of inflammation from bowel or solid or hollow organs. No changes to indicate diverticulitis or pancreatitis are identified 3. Probable atrophic uterus versus hysterectomy. No ovarian enlargement is seen. Dictated by: Alban Villarreal M.D. on 07/24/2017 at 19:22 PROCEDURE: X-RAY CHEST ONE VIEW, PORTABLE ([id number]) INDICATIONS: dyspnea, vomiting IMPRESSION: Acute and chronic disease or not identified an upright portable chest. Dictated by: Alban Villarreal M.D. on 07/24/2017 at 18:15 Assessment & Plan Patient is a 51-year-old female with medical history significant for nephrolithiasis presented with intractable epigastric pain, hematemesis, admitted for epigastric pain of unclear etiology. s/p EGD 07/25 inconclusive for etiology of abd pain. Upper abdominal pain with episode hematemesis, poa, active- -CT showing mesentery or omental stranding in the anterior abdominal cavity. -Likely peptic ulcer disease, gastric ulcer, possible omental ischemia from surgical standpoint - Started on Protonix gtt. -Consulted GI Dr. Haley, performed EGD 07/25. LA grade A erosive esophagitis. Mild gastropathy. Await histopathology for H.Pylori. I did not identify the explanation for her abdominal pain. I suspect this is indeed probably related to the omental infarct suggested at CT and would defer further management to the surgical service. -Consulted Surgeon, Dr. Michelet Kaiser- will see in AM for possible diagnostic laparoscopy on and possibly even wedge out the infarcted omentum -NPO past mn Intractable Nausea- poa, active- Pt says has had chronic nausea for months. Unclear etiology. Likely related to above. - Single episode of hematemesis. May have been due to retching. No further evidence of Upper GIB. - Consider changing protonix gtt to bid dosing. - Zofran prn. Leukocytosis, poa, active. At [facility] prior to admit, had Leukocytosis and fever. -may be reactive. Consider possible intraabdominal process -blood culture pending -Broad coverage Zosyn for now. Hypokalemia, POA, resolved. -likely 2nd to vomiting -replenished per protocol Hyperglycemia, poa, active. -mildly elevated glucose -A1c pending DVT prophylaxis: SCD for now, heparin held due to possible GIB and pre-op. Consider resuming. Dispo- Patient is under inpatient status expected length of stay greater than 2 midnights due to severity of presenting symptoms, risk of adverse events, and complexity of treatment plan. GI Prophylaxis: Proton Pump Inhibitor VTE Prophylaxis: SCDs VTE Mechanical Devices: Intermittant Pneumatic CD Resuscitation Status: CPR: Attempt Resuscitation Terrance Morrison MD Jul 25, 2017 16:58
[2017-07-25] MEDS ORDERED: 0.9% Sodium Chloride 100 ML ONE (17:49)
[2017-07-25] MEDS: Pantoprazole Inj 80 MG in 0.9% Sodium Chloride 80 ML IV SCH (17:54)
--- NOTE | 2017-07-25 18:02 | NUR ---
Pain/NPO after midnight Pt return from Endo today; c/o pain in her back and upper abdomen, PO Tylenol given for pain; per pt effective. Pt NPO after midnight for procedure 07/26/17. Care ongoing.
[2017-07-26] VITALS (14 sets, daily range): BP systolic 112–142; BP diastolic 73–84; PULSE 58–78; RESP 14–18; O2SAT 95–100
[2017-07-26] MEDS: 0.9% Sodium Chloride 1,000 ML IV SCH ×3 (04:16→14:10)
[2017-07-26] MEDS: Pantoprazole Inj 80 MG in 0.9% Sodium Chloride 80 ML IV SCH (04:18)
--- NOTE | 2017-07-26 05:28 | NUR ---
NPO/Pain Pt has been NPO since midnight for scheduled diagnostic laparoscopy with Dr. Kaiser this a.m. C/o pain up to 8 out of 10 headache, PO Tylenol given which helped alleviate s/s. IV Zofran given X2 this shift for c/o nausea, no emesis. Pt is SBA with IV poles to BR and is steady on her feet.
[2017-07-26 05:29] LABS: BASOPHILS % (AUTO) 0.5 % (0-3); EOSINOPHILS % (AUTO) 2.7 % (0-5); MONOCYTES % (AUTO) 8.5 % (4-12); Mean Corpuscular Hemoglobin 29.8 pg (27.0-35.0); Mean Corpuscular Volume 87.5 fL (81-100); NEUTROPHILS % (AUTO) 56.1 % (40-74); Platelet Count 242 bil/L (150-400)
[2017-07-26] MEDS: Piperacillin-Tazo 3.375 Gm Inj 3.375 GM in Dextrose 5% Minibag Plus 50 ML IV SCH (06:18)
[2017-07-26] MEDS: HYDROmorphone 0.5 mg/0.5 mL iSecure Syringe IVPUSH PRN ×2 (07:08→12:12)
[2017-07-26] MEDS: Ondansetron 2 mg/mL 2 mL Inj IVPUSH PRN ×2 (07:08→18:40)
--- NOTE | 2017-07-26 09:16 | PCM.HPANE ---
Patient Data Surgeon Admitting Provider:Marilu Cox DO Attending Provider:Terrance Morrison MD Primary Care Physician:Other,Physician Other Provider:Jo Granger Reason for Visit Epigastric Pain, Hematemosis EPIGASTRIC PAIN, HEMATEMOSIS Ht/WT & BMI Height (Feet): 5 Height (Inches): 10.00 Weight (Kilograms): 85.450 Body Mass Index 26.00 Allergies Coded Allergies: tree nut (Verified Allergy, Severe, Anaphylaxis, 07/24/17) shellfish derived (Verified Allergy, Mild, GI ISSUES, 07/24/17) TESTED SENSITIVITY TO SHELLFISH No Known Allergies (Unverified Allergy, Unknown, 07/24/17) Past Anesthesia History Anesthesia History: Denies:: Abnormal Airway, Anesthesia Reactions, Difficult Intubation, Fam Anesthesia Reaction, Fam Malignant Hypertherm, Malignant Hyperthermia Diabetes History Hx Diabetes?: No Current Bedside Blood Glucose: 105 MRSA MRSA: No Medications Reported Medications Omeprazole 20 Mg Capsule.dr20 Mg PO bid x 14 days #28 07/24/17 Tamsulosin ER 0.4 Mg Cap.er.24h0.4 Mg PO HS x 14 days #14 07/24/17 History History of ENT Problems?: No HEENT History: Positive for:: Dysphagia (MOSTLY SOLIDS) Denies:: Abnormal Airway Cataracts Difficult Intubation Glaucoma Hearing Problem Sinus Problem Denture Type: None Teeth Condition: Within Normal Limits Hx of Heart Problems?: No Cardiovascular History: Denies:: AICD Abdominal Aortic Aneurism Atrial Fibrillation Cardiac Surgery Chest Pain Congestive Heart Failure Coronary Artery Disease Edema Heart Murmur Hypertension Irregular Heartbeat Pacemaker Peripheral Vascular Rheumatic Fever Thrombophlebitis Valvular Heart Disease Hx of Respiratory Problem?: Yes Respiratory History: Positive for:: Pneumonia (in past 10 years per pt) Denies:: Asthma COPD Chest Surgery Emphysema Hemoptysis Tuberculosis Hx Neurologic Problems?: No Neurological History: Positive for:: Dizziness (intermittent) Headaches Denies:: Alzheimer's Disease CVA Dementia Parkinson's Disease Seizures Hx of GI Problems?: Yes Hx of Problems?: No Genitourinary History: Positive for:: Kidney Stones ("a few years ago") Denies:: HX of Hemodialysis Urinary Tract Infection HX of Peritoneal Dialysis: No Female Hx: Denies:: Currently (HYSTO) Endometriosis Pelvic Inflammatory Problems with Breasts? Hx Musculoskeletal Problems?: No Musculoskeletal History: Denies:: Back Injury Fibromyalgia Joint Replacement Musculoskeletal Trauma Hx of Psycho/Social Problems?: No Psycho Social History: Denies:: Anxiety Bipolar Disorder Hx Depression Suicide Attempt Hx Surgeries?: Yes (hysterectomy 2003) Hx Any Other Health Problems?: No Other History: Positive for:: Hospitalization (hysterectomy 2003) Denies:: Cancer Thyroid Disease History Blood Transfusions: Positive for:: Accept Blood Products? 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 Hx Alcohol Use: NoHx Substance Use: No Smoking Status: Never Smoker Have You Smoked inLast 12 mo: No Stop/Bang Treated for Sleep Apnea?: No Do You Have a CPAP Machine?: No S-Snoring: Do You Snore Loudly: No T-Tired: feel tired, fatigued: No O-Obsered: Observed not breath: No P-Blood Pressure: treated: No B- Body Mass Index > 35 kg/m2: No A- Age over 50: No N- Neck Large Circumference: No G- Gender Male: No TATE Total Score: 0 TATE Risk Assessment: Low Risk, <3 Yes Risk Assessment Category Category 1A: Patient has history of documented sleep apnea, and HAS NOT received any narcotic, sedative or anesthesia administration during this stay. Category 1B: Patient has history of documented sleep apnea, and HAS received any narcotic , sedative or anesthesia administration during this stay Category 2: Patient has SUSPECTED Obstructive Sleep Apnea, and HAS received any narcotic , sedative or anesthesia administration during this stay. Category 3: Patient has SUSPECTED Obstructive Sleep Apnea and HAS NOT received narcotic, sedative or anesthesia administration during this stay. Category 4: Outpatient in Procedural Areas with known sleep apnea or who screen positive for High Risk via the STOP/BANG questionnaire. Exam Exam Vital Signs Vital Signs Date Time Temp Pulse Resp B/P Pulse Ox O2 Delivery O2 Flow Rate FiO2 07/26/17 08:34 36.3 63 15 118/75 96 Room Air 07/26/17 04:31 36.7 68 18 129/77 96 Room Air 07/26/17 03:07 76 General Appearance: Alert, Oriented X3 HEENT/AIRWAY: MP 2 Lungs: Clear to Auscultation Heart: Exam Unremarkable Meds/Labs/Diagnostics Admission Meds Current Medications Pantoprazole 80 mg/Sodium Chloride 100 ml @ 10 mls/hr Q10H IV Last administered on 07/26/17 04:18; Start 07/25/17 at 13:30 Lactated Ringer's 1,000 ml @ STK-MED ONCE IV Last administered on 14:30; Start 07/25/17 at 14:30; Stop 07/25/17 at 14:35; Status DC Sodium Chloride (Normal Saline) 100 ml @ STK-MED ONCE .ROUTE Last administered on 07/25/17 17:57; Start 07/25/17 at 17:49; Stop 07/25/17 at 17:50 ; Status DC Bedside Blood Glucose: 105 Labs Test 07/24/17 17:10 07/24/17 17:41 07/24/17 21:04 07/24/17 23:23 Urine Color Yellow (YELLOW) Urine Appearance Hazy (CLEAR,HAZY) Urine pH 6.5 (5.0-8.0) Urine Specific [place] 1.010 (1.003-1.035) Urine Protein Negativemg/dL (NEG,TRACE) Urine Glucose (UA) Negativemg/dL (NEGATIVE) Urine Ketones Negativemg/dL (NEGATIVE) Urine Occult Blood Small (NEGATIVE) Urine Nitrite Negative (NEGATIVE) Urine Bilirubin Negative (NEGATIVE) Urine Urobilinogen Normalmg/dL (NORMAL) Urine Leukocyte Esterase Negative (NEGATIVE) Urine RBC 0-2/hpf (0-2) Urine WBC 0-5/hpf (0-5) Urine Epithelial Cells Moderate/hpf (NONE-MOD) Urine Crystals Amorphous urates (NONE Urine Bacteria Few/hpf (NONE-FEW) Urine Hyaline Casts None/lpf (NONE) Urine Granular Casts None seen (NONE SEEN) Urine Waxy Casts None seen (NONE SEEN) Urine Red Blood Cell Casts None seen (NONE SEEN) Urine White Blood Cell Casts None seen (NONE SEEN) Urine Mucus None seen (None Seen) Urine Trichomonas None seen (NONE SEEN) Urine Yeast None (NONE SEEN) Urinalysis Comment None Urine Culture Reflexed Not indicated Hold Urine Received (Received) Magnesium Level 2.2mg/dL (1.6-2.6) Total Bilirubin 0.6mg/dL (0.0-1.2) Aspartate Amino Transf (AST/SGOT) 15U/L (0-50) Alanine Aminotransferase (ALT/SGPT) 18U/L (0-32) Alkaline Phosphatase 63U/L (25-150) Total Protein 7.0g/dL (6.4-8.4) Albumin 3.6g/dL (3.4-5.0) Lipase 19U/L (13-60) Lactic Acid Level 0.6mmol/L (0.4-2.0) Hemoglobin A1c 5.7% (4.8-5.6) Test 07/25/17 05:35 07/26/17 04:50 Sodium Level 138mEq/L (134-144) Potassium Level 4.2mEq/L (3.5-5.2) Chloride Level 105mEq/L (97-108) Carbon Dioxide Level 20mmol/L (18-29) Blood Urea Nitrogen 6mg/dL (6-24) Creatinine 0.58mg/dL (0.57-1.00) Estimat Glomerular Filtration Rate 158mL/min (>59) Glucose Level 158mg/dL (60-99) Calcium Level 8.4mg/dL (8.5-10.1) White Blood Count 7.3th/mm3 (3.8-10.1) Red Blood Count 4.23mil/mm3 (3.90-5.20) Hemoglobin 12.6g/dL (12.0-15.6) Hematocrit 37.0% (35.0-46.0) Mean Corpuscular Volume 87.5fL (81-100) Mean Corpuscular Hemoglobin 29.8pg (27.0-35.0) Mean Corpuscular Hemoglobin Concent 34.1% (32.0-37.0) Red Cell Distribution Width 13.7% (12.3-15.4) Platelet Count 242bil/L (150-400) Neutrophils (%) (Auto) 56.1% (40-74) Lymphocytes (%) (Auto) 32.1% (14-46) Monocytes (%) (Auto) 8.5% (4-12) Eosinophils (%) (Auto) 2.7% (0-5) Basophils (%) (Auto) 0.5% (0-3) Plan Impression Patient chart reviewed, patient interviewed and anesthestic plan with risks, benefits, and alternatives discussed, and informed consent obtained. NPO per Anesth. Guidelines: Yes ASA Physical Status: ASA2 Mod Systemic Disease Anesthetic Plan: GA Bene/Risks/Altern/Consents: Yes HP Complete Prior to Induction: Yes Ellis Miller MD Jul 26, 2017 09:16
[2017-07-26] MEDS ORDERED: Lactated Ringer's 500 ML IV PRN ×2 (09:34→10:13)
[2017-07-26] MEDS ORDERED: Lactated Ringer's 1,000 ML IV SCH ×2 (09:34→10:13)
[2017-07-26] MEDS ORDERED: Phenylephrine 10,000 mCg/mL Inj IVPUSH PRN ×2 (09:35→10:15)
[2017-07-26] MEDS ORDERED: EPHEDrine Sulfate 50 mg/mL Inj IVPUSH PRN ×2 (09:35→10:15)
[2017-07-26] MEDS ORDERED: Ondansetron 2 mg/mL 2 mL Inj IVPUSH PRN ×2 (09:35→10:15)
[2017-07-26] MEDS ORDERED: HYDROmorphone 1 mg/mL Inj IVPUSH PRN ×2 (09:35→10:15)
[2017-07-26] MEDS ORDERED: MetoCLOpramide 5 mg/mL 2 mL Inj IVPUSH PRN ×2 (09:35→10:15)
[2017-07-26] MEDS ORDERED: fentaNYL-PF 50 mCg/mL 2 mL Inj IVPUSH PRN ×2 (09:35→10:15)
[2017-07-26] MEDS ORDERED: fentaNYL-PF 50 mCg/mL 2 mL Inj ONE (09:36)
[2017-07-26] MEDS ORDERED: Neostigmine 1 mg/mL 10 mL Inj ONE (09:36)
[2017-07-26] MEDS ORDERED: Rocuronium 10 mg/mL 5 mL Inj ONE (09:36)
[2017-07-26] MEDS ORDERED: Glycopyrrolate 0.2 MG/ML 1mL Inj ONE (09:36)
[2017-07-26] MEDS ORDERED: Dexamethasone 4 mg/mL Inj ONE (09:36)
[2017-07-26] MEDS ORDERED: Bupivacaine-MPF 0.25% 30 mL Inj INFILTRATE ONE (10:13)
[2017-07-26] MEDS ORDERED: Lactated Ringer's 1,000 ML IV ONE (10:14)
[2017-07-26] MEDS ORDERED: Dexamethasone 4 mg/mL Inj IVPUSH PRN (10:15)
[2017-07-26] MEDS ORDERED: HYDROcodone-APAP 5-325 mg Tablet PO PRN (11:05)
--- NOTE | 2017-07-26 11:06 | PCM.PNMED ---
Subjective Date of Service Jul 26, 2017 Subjective Pt going to OR this AM. Still c/o of Epigastric pain. Denies hematemesis. Exam Vital Signs Vital Sign - Last Date Time Temp Pulse Resp B/P Pulse Ox O2 Delivery O2 Flow Rate FiO2 07/26/17 08:34 36.3 63 15 118/75 96 Room Air Intake and Output 07/25/17 07/25/17 07/26/17 Cumulative From/Thru 15:00 23:00 07:00 07/24/17 16:29 - 07/26/17 06:21 Intake Total 0 ml 2332 ml 1025 ml 4745 ml Output Total 750 ml 2200 ml 2950 ml Balance -750 ml 132 ml 1025 ml 1795 ml Intake Oral 0 ml 1320 ml 1320 ml IV Total 1012 ml 1025 ml 3425 ml Output Urine Total 750 ml 2100 ml 2850 ml Emesis 100 ml 100 ml # Voids 2 2 # Bowel Movements 0 0 0 Exam General: No acute distress, appropriately interactive HEENT: Normocephalic, atraumatic. PERRLA, Anicteric sclerae, moist conjunctivae. Neck: No JVD, No bruits. No lymphadenopathy or thyromegaly. Cardiovascular: Regular rate and rhythm with no murmurs, rubs, or gallops appreciated Pulmonary: b/l air sound with no crackles, wheezes, or rhonchi. no use of accessory muscles. Abdomen: Positive bowel sounds, + tenderness epigastric, negative for costophrenic angle tenderness, negative for Hardin sign Extremities: No clubbing or cyanosis, no lymphedema, no b/l lower leg edema Skin: Normal temperature, turgor, and texture; no rash. No visualized skin ulcer. Neurological: CN II-VII grossly intact, moving equally on all 4 extremities Psychiatric: Normal mood and affect. AOx3 IVs and Medications Medications Reviewed: Medications were reviewed in detail Lab and Diagnostics Result Diagram: 07/26/17 0450 07/25/17 0535 Microbiology Microbiology 07/24/17 Blood Culture, Received Pending X-Rays, CTs and MRIs PROCEDURE: CT ABDOMEN AND PELVIS WITH CONTRAST ([id number]) INDICATIONS: epigastric RUQ pain, vomiting IMPRESSION: 1. Small amount of free fluid in the peritoneal cavity, an abnormal finding in a patient of this age. 2. Stranding is seen in the mesentery or omentum of the anterior abdominal cavity. This could represent a mild segmental omental infarct. I don't see any source of inflammation from bowel or solid or hollow organs. No changes to indicate diverticulitis or pancreatitis are identified 3. Probable atrophic uterus versus hysterectomy. No ovarian enlargement is seen. Dictated by: Alban Villarreal M.D. on 07/24/2017 at 19:22 PROCEDURE: X-RAY CHEST ONE VIEW, PORTABLE ([id number]) INDICATIONS: dyspnea, vomiting IMPRESSION: Acute and chronic disease or not identified an upright portable chest. Dictated by: Alban Villarreal M.D. on 07/24/2017 at 18:15 Assessment & Plan Patient is a 51-year-old female with medical history significant for nephrolithiasis presented with intractable epigastric pain, hematemesis, admitted for epigastric pain of unclear etiology. s/p EGD 07/25 inconclusive for etiology of abd pain. Upper abdominal pain with episode hematemesis, poa, active- -CT showing mesentery or omental stranding in the anterior abdominal cavity. - Suspected due to omental ischemia from surgical standpoint. Initially suspected peptic ulcer disease, gastric ulcer, possible. - Started on Protonix gtt, change to 40mg Protonix IV, transition to PO once diet resumes. -Consulted GI Dr. Haley, performed EGD 07/25. LA grade A erosive esophagitis. Mild gastropathy. Await histopathology for H.Pylori. I did not identify the explanation for her abdominal pain. I suspect this is indeed probably related to the omental infarct suggested at CT and would defer further management to the surgical service. -Recommend outpatient followup to discuss routine screening colonoscopy -Consulted Surgeon, Dr. Michelet Kaiser- 07/25 plan to perform diagnostic laparoscopy on and possibly even wedge out the infarcted omentum -NPO past mn Intractable Nausea- poa, active Pt says has had chronic nausea for months. Unclear etiology. Likely related to above. - Single episode of hematemesis. May have been due to retching. No further evidence of Upper GIB. - Zofran prn. Leukocytosis, poa, resolved- initially At [facility] prior to admit, had Leukocytosis and fever. -Consider possible intraabdominal process. may have been reactive. -blood culture- NGTD. -Broad coverage Zosyn for now. Consider stopping if no suspicion of infection post-op. Hypokalemia, POA, resolved. -likely 2nd to vomiting -replenished per protocol Hyperglycemia, poa, active. -mildly elevated glucose -A1c pending DVT prophylaxis: SCD for now, heparin held due to possible GIB and pre-op. Consider resuming post-op. Dispo- Patient is under inpatient status expected length of stay greater than 2 midnights due to severity of presenting symptoms, risk of adverse events, and complexity of treatment plan. GI Prophylaxis: Proton Pump Inhibitor VTE Prophylaxis: SCDs VTE Mechanical Devices: Intermittant Pneumatic CD Resuscitation Status: CPR: Attempt Resuscitation Terrance Morrison MD Jul 26, 2017 11:06
--- NOTE | 2017-07-26 11:40 | OP ---
[address] [address] OPERATIVE REPORT PATIENT: FROILAN CHRISTIANSON : 1965 MR#: [id number] ADMIT: 07/24/2017 JOB ID: [id number] DATE OF SURGERY: 07/26/2017 SURGEON: Michelet Kaiser M.D. 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 POSTOPERATIVE DIAGNOSIS(ES): Infarcted flesh hemorrhagic gastrohepatic omental lymph node. PROCEDURE: Laparoscopic excision of gastrohepatic mass/lymph node. EQUIPMENT SERVICE ASSOCIATE: Mark Tobias PA-C INDICATIONS: A 51-year-old woman with several weeks of abdominal pain of unclear etiology. CT scan abnormality suggesting possible omental infarct is the leading diagnosis and she is brought to the operating room for confirmatory diagnostic laparoscopy and possible excision. FINDINGS: 1. A news assistant was medically necessary for camera operation and liver retraction. 2. The patient had an inflammatory process in the gastrohepatic omentum just posterior to the left lobe of the liver that appeared to be a solitary gastrohepatic omental lymph node as described below. DESCRIPTION OF PROCEDURE: The patient was brought to the operating room and the SCOAP protocol was followed. The abdomen was prepped and draped in a sterile fashion after induction of general anesthetic. Surgical time out was performed. We began with a Veress needle by the umbilicus and insufflated the abdomen. We placed an optical trocar, placed two additional ports for operating instruments. Greater omentum laid draped down into the pelvis and had no obvious anterior infarct. The falciform ligament was somewhat fatty in the area of the patient's tenderness but there was no sign of an epigastric hernia. We elevated the left lobe of the liver and what we could see was that there was an inflammatory process underneath there towards the lesser curvature of the stomach. This was easily dissected free from the liver with blunt dissection and appeared to be some sort of inflammatory mass that was approximately 1.5 x 2 cm in the gastrohepatic omentum that was fairly freely mobile. Intraoperative consultation with Dr. Kendra Zapata was obtained and she concurred that this warranted surgical excision. We placed a liver retractor and an additional port and I then used the LigaSure device first medially, then circumferentially to excise this mass from the gastrohepatic omentum without a very large margin due to the proximity of the left gastric artery. This became freed up and we then removed it in a bag through an upsized 5 mm to 10 mm port. I inspected the specimen and it appeared to be an enlarged and firm infarcted lymph node. I bisected the mass with the knife and this confirmed that what appeared to me to be an enlarged infarcted lymph node with internal hemorrhage. 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 We now reinspected our . Hemostasis was good. We let our CO2 out and removed our ports under laparoscopic vision. I closed the larger port at the fascial defect with 0 Vicryl followed by subcuticular Monocryl for the skin. The patient tolerated the procedure well.
--- NOTE | 2017-07-26 11:42 | PCM.ANEP1 ---
Post Anesthesia PACU Phase 1 Assessment Vital Signs Vital Signs Date Time Temp Pulse Resp B/P Pulse Ox O2 Delivery O2 Flow Rate FiO2 07/26/17 11:20 63 17 136/76 96 Room Air 07/26/17 11:10 72 14 142/80 100 Simple Mask 10 07/26/17 11:05 70 15 126/84 100 Simple Mask 10 07/26/17 11:00 61 17 131/84 100 Simple Mask 10 07/26/17 10:55 37.5 62 17 112/75 100 Simple Mask 10 07/26/17 08:34 36.3 63 15 118/75 96 Room Air 07/26/17 04:31 36.7 68 18 129/77 96 Room Air Anesthetic Administered: GA Level of Alertness: Awake, talking Pain: Yes Pain Scale Score: 4 Nausea or Vomiting: No CV Function & Hydration Stable: Yes Airway Device: Oxygen Delivery: Room Air Lungs: Clear to Auscultation, Normal Air Movement PACU Phase 2 Assessment Complications: No Follow up Care: No Patient Instructions Provided: N/A Ellis Miller MD Jul 26, 2017 11:42
[2017-07-26] MEDS ORDERED: HYDR-4003 PO (13:19)
--- NOTE | 2017-07-26 13:29 | PROG NOTE ---
[address] [address] PROGRESS NOTE PATIENT: FROILAN CHRISTIANSON : 1965 MR#: [id number] ADMIT: 07/24/2017 JOB ID: [id number] DATE: 07/26/2017 The patient is seen postop. She is awake. Says that her pain is better than preoperative. Incisional dressings are dry. I reviewed the intraoperative findings with her, the fact that this likely accounts for her pain, reviewed wound care instructions and the importance of following up with [facility] for review of her pathology. From my point of view she could be discharged today. She tells me that Dr. Morrison is planning to keep her in the hospital until tomorrow. I did stop her IV antibiotics as I saw no indication for them at this point.
--- NOTE | 2017-07-26 16:40 | NUR ---
Social Work- Continued D/C Planning Data: EMR reviewed. Pt is on day 2 of hospitalization. Pt discussed in rounds, pt to go to OR today. No SW needs identified in rounds. SW continues to follow. Assessment: Pt who is independent at baseline. Plan: Pt to OR today. No SW needs identified in rounds. SW continues to follow. IRON Cain
--- NOTE | 2017-07-26 16:46 | NUR ---
Shift Note: Patient gone to OR for procedure this morning from approximately 9-1145. Was recovered in the TARA and received patient alert and stable. Some abdominal tenderness that was relieved by 0.5mg Dilaudid and 650mg tylenol. In fact, patient states that her pain of the last week was relieved even in the TARA coming out of surgery. She feels much more comfortable now. Dr. Kaiser at this afternoon to explain procedure and findings to patient. VSS. Advanced to full diet for dinner.
[2017-07-27] MEDS: 0.9% Sodium Chloride 1,000 ML IV SCH ×2 (00:10→10:10)
[2017-07-27 00:18] VITALS: BP 106/64; PULSE 62; RESP 18; O2SAT 96
--- NOTE | 2017-07-27 04:19 | NUR ---
Pain 0/10 Patient has denied pain throughout shift other than a mild headache resolved with single dose of Tylenol. Ambulates with steady gait, left arm IV infiltrated, then removed, right arm IV asymptomatic. Call light within reach, intentional rounding.
[2017-07-27 04:38] VITALS: BP_SYST 123; BP_SYST 139; BP_DIAS 69; BP_DIAS 80; PULSE 74; PULSE 80; RESP 18; RESP 20; O2SAT 94; O2SAT 96
[2017-07-27] MEDS ORDERED: Pantoprazole 4 mg/mL 10 mL Inj IVPUSH SCH (07:30)
--- NOTE | 2017-07-27 08:43 | PCM.PNSURG ---
Subjective Date of Service: Jul 27, 2017 Visit Information: Reason for Visit Epigastric Pain, Hematemosis Surgery/Surgery Date LAPAROSCOPY 07/26/17 Post-Op Day #1 Date of Admission: Jul 24, 2017 at 21:33 Hospital Day # Subjective: Eating solid foods with no nausea or vomiting. Passing flatus but has not had a bowel movement. Ambulatory in the hallway without assistance. Pain-free, last pain medication was last night. Taking Tylenol with good pain control. Requesting permission to travel to [facility] this weekend. Postop General: No Complaints Gastrointestinal: Good Appetite, Tolerating Oral Feedings, No N/V, Passing Flatus Pain Management: Good Pain Control, No or Minimal Pain Postop Activity: Ambulating Independently Objective Vital Sign- Last 8 Hours Date Time Temp Pulse Resp B/P Pulse Ox O2 Delivery O2 Flow Rate FiO2 07/27/17 04:38 36.8 80 20 123/69 96 Room Air Intake and Output- Last 8 Hour 07/27/17 Cumulative From/Thru 07:00 07/24/17 16:29 - 07/27/17 06:12 Intake Total 1037 ml 8663 ml Output Total 3450 ml 29271 ml Balance -2413 ml -1842 ml Intake Oral 1037 ml 4097 ml IV Total 4566 ml Output Urine Total 3450 ml 76950 ml Emesis 100 ml Estimated Blood Loss 5 ml # Voids 5 # Bowel Movements 0 0 General: Alert, Oriented X3, No Acute Distress Abdomen: Soft, Non-tender, Non-distended SURGICAL WOUND : Wound General Appearence: No Erythema, Wound under dressing Extremities: Thigh&Calf Soft/Nontender Neuro: Normal Speech Catheters: None Result Diagram: 07/26/17 0450 07/25/17 0535 Assessment & Plan Impression Primary diagnoses: Infarcted flesh hemorrhagic gastrohepatic omental lymph node. POD #1, stable for discharge. Other chronic conditions: 1. Left nephrolithiasis 2. Adenomyosis 3. Bladder prolapse Problems: Plan Surgically stable for discharge. Follow-up in the surgery [facility] clinic in 2-3 weeks. Pain Management: Tylenol VTE Prophylaxis: SCDs Resuscitation Status: CPR: Attempt Resuscitation Roger Pope PA-C Jul 27, 2017 08:43
--- NOTE | 2017-07-27 08:44 | PCM.DISURG ---
Michelet Kaiser MD 07/26/17 1320: Surgical Discharge Instruction Date of Service Jul 26, 2017 Dates of Hospitalization Date of Hospital Admission Jul 24, 2017 at 21:33 Providers Admitting Physician: Marilu Cox DO Primary Care Physician: Other,Physician Attending Physician: Terrance Morrison MD Follow Up Plan Follow Up Plan follow-up with [facility] in 1-2 weeks to review pathology results Roger Pope PA-C 07/27/17 0844: Surgical Discharge Instruction Discharge Diagnosis Discharge Diagnosis Primary diagnoses: Infarcted flesh hemorrhagic gastrohepatic omental lymph node. POD #1, stable for discharge. Other chronic conditions: 1. Left nephrolithiasis 2. Adenomyosis 3. Bladder prolapse Post Operative diagnosis Same Activity Discharge Activity-General: No restrictions, No driving while taking narcotic Dressing and Incisional Care Dressing Care: Allow Steri Stripes to fall off, Remove outer dressing after 24 hrs Hygiene: May shower Follow Up Plan Mid-level Provider (F9): Roger Pope PA-C Follow-up appointment: Weeks (2-3) Call your provider for: Fever, Chills, Increasing abdominal pain, Nausea, Vomiting, Wound redness, Increasing wound pain, Warmth to touch, Discharge @ incision, pus discharge Michelet Kaiser MD Jul 26, 2017 13:20 Roger Pope PA-C Jul 27, 2017 08:44
--- NOTE | 2017-07-27 10:07 | PCM.DC.MED ---
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 Intractable Nausea- poa, resolved. Leukocytosis, poa, resolved Hypokalemia, POA, resolved. Hyperglycemia, poa, resolved Procedures XRay, CTs & MRIs PROCEDURE: CT ABDOMEN AND PELVIS WITH CONTRAST ([id number]) INDICATIONS: epigastric RUQ pain, vomiting IMPRESSION: 1. Small amount of free fluid in the peritoneal cavity, an abnormal finding in a patient of this age. 2. Stranding is seen in the mesentery or omentum of the anterior abdominal cavity. This could represent a mild segmental omental infarct. I don't see any source of inflammation from bowel or solid or hollow organs. No changes to indicate diverticulitis or pancreatitis are identified 3. Probable atrophic uterus versus hysterectomy. No ovarian enlargement is seen. Dictated by: Alban Villarreal M.D. on 07/24/2017 at 19:22 PROCEDURE: X-RAY CHEST ONE VIEW, PORTABLE ([id number]) INDICATIONS: dyspnea, vomiting IMPRESSION: Acute and chronic disease or not identified an upright portable chest. Dictated by: Alban Villarreal M.D. on 07/24/2017 at 18:15 Brief History Per HPI on 07/24/[address] French 51-year-old female from home visits to the ED with gastrointestinal symptoms. She carries a medical history significant only for nephrolithiasis. Patient states knife like lower thoracic back pain started around 6 days ago, and migrate anteriorly to the epigastric and right upper quadrant pain. Pain pain has a constant and increasing quality unrelated to food intake. Patient reports significant shortness of breath with inspiration associated with pain started around 2-3 days ago. And yesterday patient started nausea and vomiting with hematemesis. She tolerated very little by mouth intake, was able to tolerate yogurt and on season mashed potatoes. At then, patient visited [facility], which gave her omeprazole and discharge her. Patient had a mild 99.3 temperature and white count on that visit. Due to the consistent nausea vomiting plus severity of abdominal pain, patient elected to decide further medical care at [facility] ED. Patient denies any lightheadedness dizziness , palpitation, chest pain, no coughing, no chills or night sweats, no tingling numbness weakness in extremities, no swellings in the legs. Due to patient's abdominal pain, CT abdomen and pelvis ordered and showed small amount of free fluid in the peritoneal cavity with addition of mesentery stranding. LFT, lipase were completely benign. Concerning however, elevated white count at 13.6 with 74.9% neutrophil. Additionally vital shows tachycardic at 95 bmp. Normal temperature, respiratory rate blood pressure. CMP fairly unremarkable except for slightly low potassium 3.4 with magnesium 2.2. A lactic acid was ordered on and off since this may be ischemic process. Patient is admitted with abdominal pain for further evaluation. Hospital Course Patient is a 51-year-old female with medical history significant for nephrolithiasis presented with intractable epigastric pain, hematemesis, admitted for epigastric pain of unclear etiology. s/p EGD 07/25 inconclusive for etiology of abd pain. 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 Kaiser. - likely cause of abd pain which has improved since resection. May be inflammatory, follow up on pathology from specimen to determine if Malignancy. Abd CT did not reveal any other sites of malignancy. Further workup to be done as outpatient pending path results- - Pain- Hydrocodone- Acetaminopen 5-325 mg every 6 hours as needed. - follow-up with [facility] in 1-2 weeks to review pathology results Upper abdominal pain with episode hematemesis, poa, improved. likely due to above. -CT showing mesentery or omental stranding in the anterior abdominal cavity. - Suspected omental ischemia from surgical standpoint ruled out with Diagnostic Laparoscopic. Initially suspected peptic ulcer disease, gastric ulcer, possible which were ruled out by EGD. - Started on Protonix gtt, change to 40mg Protonix IV, transition to PO once diet resumes. -Consulted GI Dr. Haley, performed EGD 07/25. LA grade A erosive esophagitis. Mild gastropathy. Await histopathology for H.Pylori. I did not identify the explanation for her abdominal pain. -Recommend outpatient followup to discuss routine screening colonoscopy -Consulted Surgeon, Dr. Paul Kaiser- s/p Laparoscopic resection on 07/[address] Kaiser. See above. Intractable Nausea- poa, resolved. Pt says has had chronic nausea for months. Unclear etiology. Likely related to above. - Single episode of hematemesis. May have been due to retching. No further evidence of Upper GIB. - Zofran prn was given. Leukocytosis, poa, resolved- initially At [facility] prior to admit, had Leukocytosis and fever. -Consider possible intraabdominal process. may have been reactive. -blood culture- NGTD. - Zosyn stopped 07/25 due to no evidence of infection. Left Nephrolithiasis- poa, active. No further treatment. Asymptomatic. Hypokalemia, POA, resolved. -likely 2nd to vomiting -replenished per protocol Hyperglycemia, poa, active. -mildly elevated glucose -A1c 5.7, ruled out for diabetes. Dispo- Discharge to home. For pain take Hydrocodone- Acetaminophen 5-325 mg every 6 hours as needed. See Surgery Discharge Instructions for instructions and follow up plan. Follow-up with [facility] in 1-2 weeks to review pathology results Follow up with your PCP, Dr. Granger in next 4 weeks. Follow up with GI, Dr. Haley in 2-3 weeks. Will need routine screening Colonoscopy this year. Can also follow up biopsy results from EGD procedure. Exam Vital Signs (Last) Date Time Temp Pulse Resp B/P Pulse Ox O2 Delivery O2 Flow Rate FiO2 07/27/17 04:38 36.8 80 20 123/69 96 Room Air 07/26/17 11:10 10 Test 07/24/17 17:10 07/24/17 17:41 07/24/17 21:04 07/24/17 23:23 Urine Color Yellow (YELLOW) Urine Appearance Hazy (CLEAR,HAZY) Urine pH 6.5 (5.0-8.0) Urine Specific [place] 1.010 (1.003-1.035) Urine Protein Negativemg/dL (NEG,TRACE) Urine Glucose (UA) Negativemg/dL (NEGATIVE) Urine Ketones Negativemg/dL (NEGATIVE) Urine Occult Blood Small (NEGATIVE) Urine Nitrite Negative (NEGATIVE) Urine Bilirubin Negative (NEGATIVE) Urine Urobilinogen Normalmg/dL (NORMAL) Urine Leukocyte Esterase Negative (NEGATIVE) Urine RBC 0-2/hpf (0-2) Urine WBC 0-5/hpf (0-5) Urine Epithelial Cells Moderate/hpf (NONE-MOD) Urine Crystals Amorphous urates (NONE Urine Bacteria Few/hpf (NONE-FEW) Urine Hyaline Casts None/lpf (NONE) Urine Granular Casts None seen (NONE SEEN) Urine Waxy Casts None seen (NONE SEEN) Urine Red Blood Cell Casts None seen (NONE SEEN) Urine White Blood Cell Casts None seen (NONE SEEN) Urine Mucus None seen (None Seen) Urine Trichomonas None seen (NONE SEEN) Urine Yeast None (NONE SEEN) Urinalysis Comment None Urine Culture Reflexed Not indicated Hold Urine Received (Received) Magnesium Level 2.2mg/dL (1.6-2.6) Total Bilirubin 0.6mg/dL (0.0-1.2) Aspartate Amino Transf (AST/SGOT) 15U/L (0-50) Alanine Aminotransferase (ALT/SGPT) 18U/L (0-32) Alkaline Phosphatase 63U/L (25-150) Total Protein 7.0g/dL (6.4-8.4) Albumin 3.6g/dL (3.4-5.0) Lipase 19U/L (13-60) Lactic Acid Level 0.6mmol/L (0.4-2.0) Hemoglobin A1c 5.7% (4.8-5.6) Test 07/25/17 05:35 07/26/17 04:50 Sodium Level 138mEq/L (134-144) Potassium Level 4.2mEq/L (3.5-5.2) Chloride Level 105mEq/L (97-108) Carbon Dioxide Level 20mmol/L (18-29) Blood Urea Nitrogen 6mg/dL (6-24) Creatinine 0.58mg/dL (0.57-1.00) Estimat Glomerular Filtration Rate 158mL/min (>59) Glucose Level 158mg/dL (60-99) Calcium Level 8.4mg/dL (8.5-10.1) White Blood Count 7.3th/mm3 (3.8-10.1) Red Blood Count 4.23mil/mm3 (3.90-5.20) Hemoglobin 12.6g/dL (12.0-15.6) Hematocrit 37.0% (35.0-46.0) Mean Corpuscular Volume 87.5fL (81-100) Mean Corpuscular Hemoglobin 29.8pg (27.0-35.0) Mean Corpuscular Hemoglobin Concent 34.1% (32.0-37.0) Red Cell Distribution Width 13.7% (12.3-15.4) Platelet Count 242bil/L (150-400) Neutrophils (%) (Auto) 56.1% (40-74) Lymphocytes (%) (Auto) 32.1% (14-46) Monocytes (%) (Auto) 8.5% (4-12) Eosinophils (%) (Auto) 2.7% (0-5) Basophils (%) (Auto) 0.5% (0-3) Microbiology Results Microbiology 07/24/17 Blood Culture, Received Pending Discharge Medications Discharge Medications Omeprazole (Omeprazole) 20 Mg Capsule.dr 20 MG PO bid x 14 days (Reported) Tamsulosin ER (Tamsulosin ER) 0.4 Mg Cap.er.24h 0.4 MG PO HS x 14 days (Reported ) As needed Hydrocodone-Acetaminophen 5-325 mg (Hydrocodone-Acetaminophen 5-325 mg) 1 Each Tablet 1 TABLET PO Q6H PRN PRN For Mild Pain Prescribed by: PAUL KAISER MD Additional med instructions For pain take Hydrocodone- Acetaminophen 5-325 mg every 6 hours as needed. Followup Plan Disposition: Discharge to home. Follow-up plan Follow-up with [facility] in 1-2 weeks to review pathology results Follow up with your PCP, Dr. Granger in next 4 weeks. Follow up with GI, Dr. Haley in 2-3 weeks. Will need routine screening Colonoscopy this year. Can also follow up biopsy results from EGD procedure. Patient Instructions See Surgery Discharge Instructions for instructions regarding wound care, activity, and follow up plan. Provider: Harshil Haley MD Follow-up in: 4 weeks ( ) Mid-level Provider: Roger Pope PA-C Follow-up with Mid-level in: 1 week (1-2 weeks) Time spent Greater than 30 minutes was spent in preparation of discharge with greater than 50% of that time dedicated to patient counseling and coordination of care. Terrance Morrison MD Jul 27, 2017 10:07
--- NOTE | 2017-07-27 10:17 | PCM.DIMED ---
Discharge Instructions Date of Service Jul 27, 2017 Dates of Hospitalization Jul 24, 2017 at 21:33 Discharge Diagnosis Discharge Diagnosis Infarcted flesh hemorrhagic gastrohepatic omental lymph node, poa, active Upper abdominal pain with episode hematemesis, poa, improved. Intractable Nausea- poa, resolved. Leukocytosis, poa, resolved Hypokalemia, POA, resolved. Hyperglycemia, poa, resolved Medication Instructions Additional med instructions For pain take Hydrocodone- Acetaminophen 5-325 mg every 6 hours as needed. Patient Instructions Patient Instructions See Surgery Discharge Instructions for instructions regarding wound care, activity, and follow up plan. Follow-up plan Follow-up with [facility] in 1-2 weeks to review pathology results Follow up with your PCP, Dr. Granger in next 4 weeks. Follow up with GI, Dr. Haley in 2-3 weeks. Will need routine screening Colonoscopy this year. Can also follow up biopsy results from EGD procedure. Provider: Harshil Haley MD Follow-up in: 4 weeks ( ) Mid-level Provider (F9): Roger Pope PA-C Follow-up with Mid-level in: 1 week (1-2 weeks) Terrance Morrison MD Jul 27, 2017 10:17
--- NOTE | 2017-07-27 11:53 | NUR ---
Social Work: Discharge/Multidisciplinary Rounds D: EMR reviewed. Pt is on day 3 of hospitalization. Pt discussed in multidisciplinary rounds and is medically stable for discharge home today. No SW needs identified in multidisciplinary rounds, no MD orders received. A: Pt who is independent at baseline P: Pt to discharge home with spouse to transport at 1200 today. No SW needs identified in multidisciplinary rounds, no MD orders received. IRON Hooper
--- NOTE | 2017-07-27 12:52 | NUR ---
Discharge Patient discharged home. IV DC'd and intact. Dressings dry and intact. Patient informed to remove outer dressing prior to showering this afternoon and to call and schedule an appointment for follow ups with General surgery in 1-2 wks, Dr. Haley in 2-[address] Granger in 3 wks. Discharge instructions given with no questions. RX sent with patient. Patient gathered all belongings. [employer] TECHNICIAN escorted patient out via walkingin.
== END 2017-07-27 12:27 | disposition home or self-care (01) | DRG 803 ==
LOC: SED 16:24 → OBSVTOIN 21:33 → OSC 21:33
PROVIDERS: ADMIT Internal Medicine; ATTEND Internal Medicine
PROC: 0DB68ZX Excision of Stomach, Via Natural or Artificial Opening Endoscopic, Diagnostic (ICD-10-PCS; principal; 2017-07-25 14:15)
PROC: 07BB4ZZ Excision of Mesenteric Lymphatic, Percutaneous Endoscopic Approach (ICD-10-PCS; 2017-07-26)
DX: I89.8 Other specified noninfective disorders of lymphatic vessels and lymph nodes (principal); K22.10 Ulcer of esophagus without bleeding; K92.0 Hematemesis; E87.6 Hypokalemia; R73.9 Hyperglycemia, unspecified; K44.9 Diaphragmatic hernia without obstruction or gangrene